=== PATIENT | female | born 1940 | race Caucasian/White ===

== ENCOUNTER → 2022-03-25 | Outpatient (CLI) | payer MEDICARE ==
--- NOTE | 2022-03-26 20:14 | MR ---
EXAMINATION TYPE: MR brain wo con DATE OF EXAM: 03/25/2022 COMPARISON: MRI brain September 12, 2010. CT brain 2012. HISTORY: Imbalance, NPH. TECHNIQUE: Multiplanar, multisequence imaging of the brain and brainstem is performed without IV cont rast. FINDINGS: Diffusion weighted images demonstrate no evidence of a recent infarct or other diffusion abnormality. There is mild ventricular and sulcal prominence with increased sulcal effacement over the bilateral f rontal lobes redemonstrated. Some scattered foci of T2 hyperintensity are redemonstrated throughout t he white matter bilaterally. Approximately 5-10 lesions on the current study are seen. Lesions are no nspecific in appearance and distribution. T2 Star weighted images show no suspicious intraparenchymal blood product. Midline structures demonstrate normal morphology. The craniocervical junction appears within normal limits. Normal vascular flow voids are redemonstrated. The visualized sinuses are clear and the globe s are intact. Nasal septum is deviated to right of midline. IMPRESSION: Mild to moderate diffuse cerebral atrophy greatest over the left lateral frontal lobes wi th interval degenerative progression from 2011 MRI. No asymmetric prominence of the ventricles to sug gest NPH.
== END | disposition home or self-care (01) ==
LOC: RADMRIMAIN 15:03
PROVIDERS: ATTEND Psychiatry & Neurology Neurology
DX: G31.9 Degenerative disease of nervous system, unspecified (principal); R26.81 Unsteadiness on feet
CPT/HCPCS: 70551

== ENCOUNTER 2022-10-05 12:33 | Day surgery (SDC) | payer MEDICARE ==
[2022-10-03 09:14] VITALS: BMI 31.2
--- NOTE | 2022-10-04 14:41 | HP ---
HISTORY AND PHYSICAL DATE OF SCHEDULED SURGERY: 10/05/2022. HISTORY OF PRESENT ILLNESS: Keke Vail is an 82-year-old patient seen with progressive right knee pain. We discussed options for treatment, she elected to proceed with right knee arthroscopy. Consent was obtained. Medical clearance was provided by Dr. Vinson. PAST MEDICAL HISTORY: Hypertension, hyperlipidemia, hypothyroidism, and cardiovascular disease. PAST SURGICAL HISTORY: Noncontributory. DAILY MEDICATIONS: 1. Atorvastatin. 2. Celebrex. 3. Levothyroxine. 4. Pantoprazole. 5. Potassium chloride. 6. Losartan. 7. Potassium chloride. 8. Valsartan. 9. Tramadol. ALLERGIES: None. SOCIAL HISTORY: She denies tobacco use. PHYSICAL EVALUATION OF THE RIGHT KNEE: Range of motion is -2 to 115 degrees. Mild effusion. Tenderness along the medial and lateral joint lines. Positive medial Fern's. Positive lateral Fern's. Ligaments stable. Hip rotation without pain. Distal neurovascular exam intact. RADIOGRAPHS: Right knee radiographs reveal moderate osteoarthritis. MRI right knee revealed medial and lateral meniscal tears, osteoarthritis, and a popliteal cyst. IMPRESSION: 1. Internal derangement of right knee with medial and lateral meniscal tears. 2. Hyperlipidemia. 3. Hypertension. 4. Gastroesophageal reflux disease. 5. Cardiovascular disease. PLAN: Right knee arthroscopy with partial medial/lateral meniscectomy and debridement. MMODL / IJN: [id number] /
[~2022-10-05 12:33] MED LIST: LACTATED RINGERS 1,000 ML IV SCH
[2022-10-05] MEDS ORDERED: ONDANSETRON 4 MG/2 ML VIAL ONE (13:27)
[2022-10-05] MEDS ORDERED: DEXAMETHASONE SOD PHOSPHATE 4 MG/ML 1 ML VIAL IVP ONE (13:30)
[2022-10-05] MEDS ORDERED: fentaNYL (PF) 50 MCG/ML 2 ML AMP ONE (14:38)
[2022-10-05] MEDS ORDERED: LIDOCAINE 2% INJ 20 MG/ML (2 ML VIAL) ONE (14:38)
[2022-10-05] MEDS ORDERED: PROPOFOL 10 MG/ML 20 ML VIAL IV ONE (14:38)
[2022-10-05] MEDS ORDERED: SUCCINYLCHOLINE CHLORIDE 200 MG/10 ML VIAL IV ONE (14:38)
[2022-10-05] MEDS ORDERED: BUPIVACAINE (PF) 0.25% 30 ML VIAL SQ ONE ×2 (14:38→15:18)
[2022-10-05 15:35] VITALS: TEMP 96.9
--- NOTE | 2022-10-05 15:35 | P.OP ---
Date of Procedure: 10/05/22 Preoperative Diagnosis: Internal derangement right knee Postoperative Diagnosis: 1. Tear medial and lateral meniscus right knee 2. 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 Reactive synovitis medial, lateral and suprapatellar compartments right knee Procedure(s) Performed: 1. Arthroscopic partial medial and lateral meniscectomy right knee 2. Arthroscopic microfracture lateral tibial plateau right knee 3. Arthroscopic partial synovectomy medial, lateral and suprapatellar compartments right knee Anesthesia: PAIGEA, local Surgeon: Rustam Overton Estimated Blood Loss (ml): 8 Pathology: none sent Condition: stable Disposition: PACU Indications for Procedure: 82-year-old patient seen with progressive right knee pain. After treatment options were discussed with her, she elected to proceed with arthroscopy. Operative Findings: See description of procedure Description of Procedure: Patient was taken to the operative suite. Patient underwent a general anesthetic by the department of anesthesia. Patient was given preoperative antibiotics. The right lower extremity was placed in a well-padded arthroscopic leg proctor. The right leg was prepped and draped in the normal sterile orthopedic fashion. A lateral parapatellar and suprapatellar incision was made. Trochars were inserted. Arthroscopy was initiated. Suprapatellar pouch revealed diffuse thick reactive synovitis. The patellofemoral joint appeared to articulate congruently. There was grade 1/2 chondromalacia of the patella without significant osteochondral tears. The scope was guided into the medial gutter. No loose bodies or plica were identified. The scope was then guided into the medial compartment. A medial parapatellar incision was made. Trocar inserted followed by probe. There was a complex tear involving the posterior horn of the medial meniscus. There were grade 1/2 chondromalacia changes the medial femoral condyle without significant tears. There was thick reactive synovitis anteriorly. I performed a partial medial meniscectomy getting down to stable meniscal tissue. I performed a partial synovectomy decompressing the reactive synovitis. The shaver was now removed. There was good decompression of the synovitis. The residual meniscus was probed and was found to be stable. Scope and probe were then guided into the intercondylar notch. Cruciates were identified, probed and found to be stable. The scope and probe were then guided into lateral compartment. There was a complex tear involving the anterior horn, mid body and posterior horns lateral meniscus. There is a grade 3/4 chondrom alacia of the lateral tibial plateau and areas of grade 2 chondral malacia of the lateral femoral condyle. There was thick reactive some-itis anteriorly. I performed a partial lateral meniscectomy getting down to stable meniscal tissue. I performed a partial synovectomy decompressing the reactive synovitis. I did note an area of exposed bone lateral tibial plateau. I introduced a microfracture awl and performed a microfracture to that area penetrating the bone with resultant bleeding at the microfracture site. The residual meniscus was probed and was found to be stable. The residual osteochondral surface about the tibial plateau was stable. There was good decompression of the synovitis. The scope was in guided back into the suprapatellar compartment. I introduced a motorized shaver into the suprapatellar compartment. I debrided out some piecemeal fragments of meniscus I encountered. I performed a partial synovectomy. Shaver was now removed. There was good decompression of the synovitis. I now took one more look around the entire knee, no residual debris. Instruments were now removed from the joint. The joint was infiltrated with .25% Marcaine. Steri-Strips were applied to the portal sites. Sterile dressings were applied. The patient was placed into a MARII hose. No tourniquet was utilized. The patient was awakened, transferred to a bed and taken to recovery stable satisfactory condition.
[2022-10-05] MEDS ORDERED: HYDROmorphone 0.5 MG/0.5 ML SYRINGE IVP ONE ×3 (15:40→15:59)
[2022-10-05] MEDS ORDERED: MEPERIDINE 50 MG/ML SYRINGE IVP ONE (16:16)
[2022-10-05] MEDS ORDERED: HYDROcodone/APAP 5-325MG 1 EACH TAB ONE (16:57)
[2022-10-05 17:42] VITALS: BP 124/69; PULSE 77
[2022-10-05 18:22] VITALS: RESP 18
== END 2022-10-05 18:23 | disposition home or self-care (01) ==
LOC: OR 12:33
PROVIDERS: ATTEND Orthopaedic Surgery
DX: S83.281A Other tear of lateral meniscus, current injury, right knee, initial encounter (principal); S83.241A Other tear of medial meniscus, current injury, right knee, initial encounter; M17.11 Unilateral primary osteoarthritis, right knee; M94.261 Chondromalacia, right knee; M65.861 Other synovitis and tenosynovitis, right lower leg; I10 Essential (primary) hypertension; E78.5 Hyperlipidemia, unspecified; K21.9 Gastro-esophageal reflux disease without esophagitis; E03.9 Hypothyroidism, unspecified; Z82.49 Family history of ischemic heart disease and other diseases of the circulatory system; Z79.899 Other long term (current) drug therapy; X58.XXXA Exposure to other specified factors, initial encounter
CPT/HCPCS: 29880; 29879; J0330; J1100; J2175; J0690; J2405; J3010; J2704; J1170; J2001

== ENCOUNTER → 2023-11-29 | Outpatient (CLI) | payer MEDICARE ==
--- NOTE | 2023-12-17 18:27 | MM ---
Reason for Exam: Screening (asymptomatic). Last mammogram was performed 12 year(s) and 4 month(s) ago. Patient History: Menarche at age 13. First Full-Term at age 21. Left ovary removed at age 31. Right ovary removed at age 31. Hysterectomy at age 31. Postmenopausal. Breast cancer, right, age 61. Patient used Estrogen for 3 years. Patient used Hormonal Contraceptives for 3 years. Lumpectomy on the Right side. 10/01/2003, Benign Cyst Aspiration on the right side. 09/05/2002, Malignant Ultrasound-Guided Core Biopsy on the right side. Prior Study Comparison: 06/09/2010 Bilateral Diagnostic Mammogram, [facility]. 08/02/2011 Bilateral Diagnostic Mammogram, [facility]. Tissue Density: There are scattered areas of fibroglandular density. Findings: Analyzed By CAD. Postsurgical and posttreatment changes right breast. Benign bilateral vascular calcifications. There is no suspicious group of microcalcifications or new suspicious mass in either breast. Overall Assessment: Benign, BI-RAD 2 Management: Screening Mammogram of both breasts in 1 year. . Patient should continue monthly self-breast exams. A clinical breast exam by your physician is recommended on an annual basis. This exam should not preclude additional follow-up of suspicious palpable abnormalities. Electronically signed and approved by: Dolores Nam M.D. Radiologist
== END | disposition home or self-care (01) ==
LOC: RADMAMWWP 10:46
PROVIDERS: ATTEND Internal Medicine
DX: Z12.31 Encounter for screening mammogram for malignant neoplasm of breast (principal); Z92.0 Personal history of contraception; Z78.0 Asymptomatic menopausal state; Z90.722 Acquired absence of ovaries, bilateral
CPT/HCPCS: 77063; 77067

== ENCOUNTER → 2024-02-22 | Outpatient (CLI) | payer MEDICARE ==
--- NOTE | 2024-02-22 09:06 | XR ---
EXAMINATION TYPE: XR chest 2V DATE OF EXAM: 02/22/2024 7:51 AM COMPARISON: 09/29/2021 CLINICAL INDICATION: Female, 83 years old with history of R06.02 SHORTNESS OF BREATH, TECHNIQUE: XR chest 2V view(s) obtained. FINDINGS: The heart size is normal. The pulmonary vasculature is normal. The lungs are clear. Right breast surgical clips are present. Chronic stable nodularities within the right lung. IMPRESSION: 1. No acute pulmonary process. [facility], , 02/22/2024 9:04 AM
== END | disposition home or self-care (01) ==
LOC: RADXRMAIN 07:38
PROVIDERS: ATTEND Internal Medicine
DX: R06.02 Shortness of breath (principal)
CPT/HCPCS: 71046

== ENCOUNTER → 2024-03-03 | Outpatient (CLI) | payer MEDICARE ==
--- NOTE | 2024-03-03 14:32 | CT ---
EXAMINATION TYPE: CT soft tissue neck wo con DATE OF EXAM: 03/03/2024 COMPARISON: None CLINICAL INDICATION: Female, 83 years old with history of R22.1 LOCALIZED SWELLING, MASS AND LUMP, NE CK; PHH, right sided mass seen on ultrasound TECHNIQUE: Multiple axial images are obtained from the skull base to the thoracic inlet without the u se of IV contrast material. FINDINGS: There are no supraclavicular lymph nodes. There is no thyroid mass or gross enlargement. The larynx including the cricoid, arytenoid and thyroid cartilages as well as the vocal cords are nor mal and symmetric. The tongue base, epiglottis, aryepiglottic folds, piriform sinuses and vallecula are normal and symme tric. The parotid and submandibular glands are normal and symmetric without focal mass or gross enlargement . There is no pharyngeal or parapharyngeal soft tissue mass or enhancement The great vessels of the neck are normal. There are few scattered nonenlarged jugular lymph nodes and submental lymph nodes but there is no lym phadenopathy. There is no soft tissue swelling, inflammation or abscess. IMPRESSION: 1. No lymphadenopathy within the neck. 2. No significant amount is seen. [facility], , 03/03/2024 2:30 PM
== END | disposition home or self-care (01) ==
LOC: RADCTMAIN 13:55
PROVIDERS: ATTEND Internal Medicine
DX: R22.1 Localized swelling, mass and lump, neck (principal)
CPT/HCPCS: 70490

== ENCOUNTER → 2024-09-15 | Outpatient (CLI) | payer MEDICARE ==
[2024-09-15 07:57] LABS: African American GFR (CKD) 51 (>60 ml/min/1.73 sqM); Blood Urea Nitrogen 14 mg/dL (7-17); Non-African American GFR(CKD) 44 (>60 ml/min/1.73 sqM)
--- NOTE | 2024-09-18 23:07 | CT ---
EXAMINATION TYPE: CT chest w con DATE OF EXAM: 09/15/2024 8:38 AM COMPARISON: None. CLINICAL INDICATION: Female, 83 years old with history of Z85.3 PERSONAL HISTORY OF MALIGNANT NEOPLAS M OF BR, RT BREAST/BONE LUMP TECHNIQUE: Axial images were obtained at 5 mm thick sections. Reconstructed images are reviewed on [facility] computer in the coronal plane. Contrast used:80ml mL of Isovue 300 with IV Contrast, (none if empty) Oral contrast used: (none if empty) CT DLP: 384.40 mGycm, Automated exposure control for dose reduction was used. FINDINGS: Portion of the thyroid visualized is normal. Sternal manubrium and xiphoid process appear normal. Sternal clavicular junction appears normal no an terior chest wall mass is identified. There is a right breast prosthesis present. Subcutaneous calcif ication against the chest wall on the right No suspicious lung nodules or focal infiltrates are present. There is a punctate calcification near t he pleural margin on the right lateral chest. No enlarged mediastinal or hilar adenopathy is evident. The ascending aorta diameter at the level o f the main pulmonary artery is 3.6 cm. The main pulmonary artery diameter at the bifurcation is 2.7 cm. No significant coronary artery calcifications. Limited CT sections are obtained through the upper abdomen. Right renal cyst is present IMPRESSION: 1. No suspicious abnormality to account for chest wall palpable abnormality. [facility], , 09/18/2024 11:05 PM
== END | disposition home or self-care (01) ==
LOC: RADCTMAIN 07:07
PROVIDERS: ATTEND Internal Medicine
DX: Z85.3 Personal history of malignant neoplasm of breast (principal)
CPT/HCPCS: 82565; 84520; 71260; 36415; Q9967

== ENCOUNTER → 2024-09-26 | Outpatient (CLI) | payer MEDICARE ==
--- NOTE | 2024-09-26 14:38 | NM ---
EXAMINATION TYPE: NM bone scan whole body DATE OF EXAM: 09/26/2024 2:20 PM CLINICAL INDICATION:Female, 83 years old with history of R07.89 LOCALIZED SWELLING, MASS AND LUMP, TR UNK; COMPARISON: CT chest. 09/25/2024 TECHNIQUE: Intravenous administration 23.7 mCi Tc 99m MDP followed by multiple scintigraphic images o f the appendicular and axial skeleton. Additionally, small field of view planar anterior and posterio r images of the thorax and abdomen Images acquired 3 hours post injection. FINDINGS: No abnormal uptake is identified within the appendicular or axial skeleton to suggest metastatic dise ase. There is increased uptake within the joints and worse within the patella/right knee and right shoulde r. Consistent with degenerative changes. No other photopenic areas or areas of increased activity are identified. Physiologic radiotracer activity is demonstrated in the kidneys and bladder. IMPRESSION: 1. Nothing to suggest metastatic disease. 2. Degenerative uptake worse in the right knee. Consider dedicated plain films of the right shoulder right knee. [facility], , 09/26/2024 2:36 PM
== END | disposition home or self-care (01) ==
LOC: RADNMMAIN 09:49
PROVIDERS: ATTEND Internal Medicine
DX: M17.11 Unilateral primary osteoarthritis, right knee (principal); R07.89 Other chest pain; R22.2 Localized swelling, mass and lump, trunk; Z85.3 Personal history of malignant neoplasm of breast
CPT/HCPCS: 78306; A9503